=== PATIENT | male | born 1990 | race African-American/Black ===

== ENCOUNTER 2021-01-29 22:43 | Emergency (ER) | payer BC | END 2021-01-30 00:14 | disposition home or self-care (01) | LOC: ERS 22:43 | DX: R42 Dizziness and giddiness (principal) | CPT/HCPCS: 99281 ==

== ENCOUNTER 2021-03-09 13:08 | Emergency (ER) | payer BC | END 2021-03-09 15:38 | disposition home or self-care (01) | LOC: ERS 13:08 | DX: Z02.1 Encounter for pre-employment examination (principal); M25.511 Pain in right shoulder | CPT/HCPCS: 99283 ==